=== PATIENT | male | born 1975 | race Caucasian/White ===

== ENCOUNTER 2021-12-14 14:17 | Emergency (ER) | payer OTHER ==
[2021-12-14] MEDS ORDERED: Sodium Chloride 0.9% 1000 ML 1,000 ML IV STA ×2 (14:59→16:19)
[2021-12-14] MEDS ORDERED: Sodium Chloride 0.9% 1000 ML 1,000 ML ONE ×2 (15:08→16:23)
--- NOTE | 2021-12-14 15:09 | ERPHSYRPT ---
- History of Present Illness Time Seen by Provider: 12/14/21 15:07 Historian: patient Exam Limitations: no limitations Patient Subjective Stated Complaint: vomiting Triage Nursing Assessment: Patient ambulated back to ED and transferred self to bed. Patient A+O X3. Patient's skin pink, warm and dry. Patient complains of Vomiting, diarrhea, headache and fatigure since yesterday. Patient complains of headache 5/10. Physician History: Patient is 46-year-old male without any significant past medical history for last 2 days started having a vomiting nausea abdominal pain with some weakness but denies any fever or chills. Patient is fully vaccinated against coronavirus but he is not aware that anybody around him is recently positive. Patient denies any chest pain headache dizziness. Timing/Duration: day(s) (two days) Activities at Onset: none Abdominal Pain Onset Location: generalized abdomen Severity of Pain-Max: mild Severity of Pain-Current: mild Modifying Factors: Improves With: nothing Associated Symptoms: diarrhea, headache, nausea, vomiting Previous symptoms: no prior history Allergies/Adverse Reactions: bee venom protein (honey bee) Allergy (Verified 12/14/21 14:50) esomeprazole [From Nexium] Allergy (Verified 12/14/21 14:50) poison francy extract Allergy (Verified 12/14/21 14:50) poison oak extract Allergy (Verified 12/14/21 14:50) poison sumac extract Allergy (Verified 12/14/21 14:50) sheep derived (ovine) Allergy (Verified 12/14/21 14:50) Hx Influenza Vaccination/Date Given: No Hx Pneumococcal Vaccination/Date Given: No Immunizations Up to Date: Yes Travel Risk - International Travel Have you traveled outside of the country in past 3 weeks: No - Coronavirus Screening Are you exhibiting any of the following symptoms?: Yes Symptoms: Vomiting/Diarrhea, Headaches/Body Aches/Fatigue Close contact with a COVID-19 positive Pt in past 14-21 Days: No - Vaccine Status Have you recieved a Covid-19 vaccination: Yes 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 - Vaccination Dates Date of 2cond Vaccination (if applicable): 03/05/2021 - Review of Systems Constitutional: Weakness, No Fever, No Chills Eyes: No Symptoms Ears, Nose, & Throat: No Symptoms Respiratory: No Cough, No Dyspnea Cardiac: No Chest Pain, No Edema, No Syncope Abdominal/Gastrointestinal: Nausea, Vomiting, Diarrhea, No Abdominal Pain Genitourinary Symptoms: No Dysuria Musculoskeletal: No Back Pain, No Neck Pain Skin: No Rash Neurological: No Dizziness, No Focal Weakness, No Sensory Changes Psychological: No Symptoms Endocrine: No Symptoms All Other Systems: Reviewed and Negative - Past Medical History Pertinent Past Medical History: Yes Neurological History: No Pertinent History ENT History: No Pertinent History Cardiac History: No Pertinent History Respiratory History: No Pertinent History Endocrine Medical History: No Pertinent History Musculoskeletal History: No Pertinent History GI Medical History: No Pertinent History History: No Pertinent History Psycho-Social History: Anxiety, Depression Male Reproductive Disorders: No Pertinent History Other Medical History: PTSD - Past Surgical History Past Surgical History: Yes Neuro Surgical History: No Pertinent History Cardiac: No Pertinent History Respiratory: No Pertinent History Gastrointestinal: Cholecystectomy Genitourinary: No Pertinent History Musculoskeletal: No Pertinent History Male Surgical History: No Pertinent History - Social History Smoking Status: Never smoker Exposure to second hand smoke: No Drug Use: none Patient Lives Alone: No - Nursing Vital Signs Nursing Vital Signs: Initial Vital Signs Temperature 98.2 F 12/14/21 14:37 Pulse Rate 115 H 12/14/21 14:37 Respiratory Rate 18 12/14/21 14:37 Blood Pressure 128/88 12/14/21 14:37 O2 Sat by Pulse Oximetry 95 12/14/21 14:37 Pain Scale Pain Intensity 2 - Physical Exam General Appearance: no apparent distress, alert Eye Exam: PERRL/EOMI, eyes nml inspection Ears, Nose, Throat Exam: normal ENT inspection, pharynx normal, moist mucous membranes Neck Exam: normal inspection, non-tender, supple, full range of motion Respiratory Exam: normal breath sounds, lungs clear, No respiratory distress Cardiovascular Exam: regular rate/rhythm, normal heart sounds Gastrointestinal/Abdomen Exam: soft, No tenderness, No mass Back Exam: normal inspection, normal range of motion, No CVA tenderness, No vertebral tenderness Extremity Exam: normal inspection, normal range of motion, pelvis stable Neurologic Exam: alert, oriented x 3, cooperative, normal mood/affect, nml cerebellar function, sensation nml, No motor deficits Skin Exam: normal color, warm, dry SpO2: 95 - Course Nursing assessment & vital signs reviewed: Yes - CT Exams Abdomen/Pelvis CT Interpretation: Tele-radiologist Report (no acute findings,) Ordered Tests: Active Orders 24 hr Category Date Time Status ABDOMEN AND PELVIS W/0 CONTRAS [CT] Stat Exams 12/14/21 16:19 Taken AMYLASE Stat Lab 12/14/21 15:00 Completed CBC W DIFF Stat Lab 12/14/21 15:00 Completed CMP Stat Lab 12/14/21 15:00 Completed COVID AG-BINAX NOW RAPID TEST Stat Lab 12/14/21 15:00 Completed LIPASE Stat Lab 12/14/21 15:00 Completed UA W/RFX UR CULTURE Stat Lab 12/14/21 16:46 Completed Medication Summary Discontinued Medications Generic Name Dose Route Start Last Admin Trade Name Freq PRN Reason Stop Dose Admin Sodium Chloride 1,000 mls @ 999 mls/hr 12/14/21 14:59 12/14/21 16:15 Sodium Chloride 0.9% 1000 Ml IV 12/14/21 15:59 Infused .Q1H1M STA Infusion Sodium Chloride Confirm 12/14/21 15:08 Sodium Chloride 0.9% 1000 Ml Administered 12/14/21 15:09 Dose 1,000 mls @ ud .ROUTE .STK-MED ONE Sodium Chloride 1,000 mls @ 999 mls/hr 12/14/21 16:19 12/14/21 17:32 Sodium Chloride 0.9% 1000 Ml IV 12/14/21 17:19 Infused .Q1H1M STA Infusion Sodium Chloride Confirm 12/14/21 16:23 Sodium Chloride 0.9% 1000 Ml Administered 12/14/21 16:24 Dose 1,000 mls @ ud .ROUTE .STK-MED ONE Ondansetron HCl 4 mg 12/14/21 16:19 12/14/21 16:26 Ondansetron Hcl 4 Mg/2 Ml Vial IV 12/14/21 16:20 4 mg STAT ONE Administration Ondansetron HCl Confirm 12/14/21 16:23 Ondansetron Hcl 4 Mg/2 Ml Vial Administered 12/14/21 16:24 Dose 4 mg .ROUTE .STK-MED ONE Pantoprazole Sodium 40 mg 12/14/21 16:19 12/14/21 16:25 Pantoprazole 40 Mg Vial IV 12/14/21 16:20 40 mg STAT ONE Administration Pantoprazole Sodium Confirm 12/14/21 16:23 Pantoprazole 40 Mg Vial Administered 12/14/21 16:24 Dose 40 mg IV .STK-MED ONE Lab/Rad Data: Laboratory Result Diagrams 12/14/21 15:00 12/14/21 15:00 Laboratory Results 12/14/21 12/14/21 12/14/21 Range/Units 16:46 15:00 15:00 WBC (4.0-10.5) K/mm3 RBC (4.1-5.6) M/mm3 Hgb (12.5-18.0) gm/dl Hct (42-50) % MCV (78-100) fl MCH (26-32) pg MCHC (32-36) g/dl RDW (11.5-14.0) % Plt Count (150-450) K/mm3 MPV (7.5-11.0) fl Gran % (36.0-66.0) % Eos # (Auto) (0-0.5) Absolute Lymphs (auto) (1.0-4.6) Absolute Monos (auto) (0.0-1.3) Lymphocytes % (24.0-44.0) % Monocytes % (0.0-12.0) % Eosinophils % (0.00-5.0) % Basophils % (0.0-0.4) % Absolute Granulocytes (1.4-6.9) Basophils # (0-0.4) Sodium (137-145) mmol/L Potassium (3.5-5.1) mmol/L Chloride (98-107) mmol/L Carbon Dioxide (22-30) mmol/L Anion Gap (5-15) MEQ/L BUN (9-20) mg/dL Creatinine (0.66-1.25) mg/dL Estimated GFR ML/MIN Glucose (74-106) mg/dL Hemoglobin A1c 7.20 H (4.5-6.0) % Calcium (8.4-10.2) mg/dL Total Bilirubin (0.2-1.3) mg/dL AST (17-59) U/L ALT (0-50) U/L Alkaline Phosphatase (38-126) U/L Serum Total Protein (6.3-8.2) g/dL Albumin (3.5-5.0) g/dL Amylase (30-110) U/L Lipase (23-300) U/L Urine Color YELLOW (YELLOW) Urine Appearance SLIGHTLY CLOUDY (CLEAR) Urine pH 5.0 (5-6) Ur Specific Carlyle 1.024 (1.005-1.025) Urine Protein NEGATIVE (Negative) Urine Ketones TRACE (NEGATIVE) Urine Blood NEGATIVE (0-5) Andriy/ul Urine Nitrite NEGATIVE (NEGATIVE) Urine Bilirubin NEGATIVE (NEGATIVE) Urine Urobilinogen NEGATIVE (0-1) mg/dL Ur Leukocyte Esterase NEGATIVE (NEGATIVE) Urine WBC (Auto) 0-2 (0-5) /HPF Urine RBC (Auto) NONE (0-2) /HPF U Epithel Cells (Auto) NONE (FEW) /HPF Urine Bacteria (Auto) NONE SEEN (NEGATIVE) /HPF Urine Mucus (Auto) SLIGHT (NEGATIVE) /HPF Urine Culture Reflexed NO (NO) Urine Glucose NEGATIVE (NEGATIVE) mg/dL SARS-CoV-2 Ag (Rapid) NEGATIVE (NEGATIVE) 12/14/21 12/14/21 Range/Units 15:00 15:00 WBC 11.5 H (4.0-10.5) K/mm3 RBC 5.71 H (4.1-5.6) M/mm3 Hgb 15.6 (12.5-18.0) gm/dl Hct 47.1 (42-50) % MCV 82.5 (78-100) fl MCH 27.3 (26-32) pg MCHC 33.1 (32-36) g/dl RDW 14.2 H (11.5-14.0) % Plt Count 279 (150-450) K/mm3 MPV 9.8 (7.5-11.0) fl Gran % 90.0 H (36.0-66.0) % Eos # (Auto) 0.08 (0-0.5) Absolute Lymphs (auto) 0.55 L (1.0-4.6) Absolute Monos (auto) 0.49 (0.0-1.3) Lymphocytes % 4.8 L (24.0-44.0) % Monocytes % 4.3 (0.0-12.0) % Eosinophils % 0.7 (0.00-5.0) % Basophils % 0.2 (0.0-0.4) % Absolute Granulocytes 10.32 H (1.4-6.9) Basophils # 0.02 (0-0.4) Sodium 138 (137-145) mmol/L Potassium 4.2 (3.5-5.1) mmol/L Chloride 102 (98-107) mmol/L Carbon Dioxide 21 L (22-30) mmol/L Anion Gap 20.0 H (5-15) MEQ/L BUN 17 (9-20) mg/dL Creatinine 0.97 (0.66-1.25) mg/dL Estimated GFR > 60.0 ML/MIN Glucose 190 H (74-106) mg/dL Hemoglobin A1c (4.5-6.0) % Calcium 9.4 (8.4-10.2) mg/dL Total Bilirubin 0.90 (0.2-1.3) mg/dL AST 99 H (17-59) U/L ALT 146 H (0-50) U/L Alkaline Phosphatase 86 (38-126) U/L Serum Total Protein 8.0 (6.3-8.2) g/dL Albumin 4.5 (3.5-5.0) g/dL Amylase 42 (30-110) U/L Lipase 55 (23-300) U/L Urine Color (YELLOW) Urine Appearance (CLEAR) Urine pH (5-6) Ur Specific Carlyle (1.005-1.025) Urine Protein (Negative) Urine Ketones (NEGATIVE) Urine Blood (0-5) Andriy/ul Urine Nitrite (NEGATIVE) Urine Bilirubin (NEGATIVE) Urine Urobilinogen (0-1) mg/dL Ur Leukocyte Esterase (NEGATIVE) Urine WBC (Auto) (0-5) /HPF Urine RBC (Auto) (0-2) /HPF U Epithel Cells (Auto) (FEW) /HPF Urine Bacteria (Auto) (NEGATIVE) /HPF Urine Mucus (Auto) (NEGATIVE) /HPF Urine Culture Reflexed (NO) Urine Glucose (NEGATIVE) mg/dL SARS-CoV-2 Ag (Rapid) (NEGATIVE) - Progress Progress: improved Counseled pt/family regarding: lab results, diagnosis, need for follow-up, rad results, smoking cessation - Departure Departure Disposition: Home Clinical Impression: Febrile illness, acute Type 2 diabetes mellitus Qualifiers: Diabetes mellitus detention insulin use: without intermodal customer service use Diabetes mellitus complication status: with hyperglycemia Qualified Code(s): E11.65 - Type 2 diabetes mellitus with hyperglycemia Condition: Stable Critical Care Time: No Referrals: SONY BREEN [Primary Care Provider] - Follow up/PCP as directed Instructions: Diabetes Type 2 (DC), Treatment for Type 2 Diabetes Additional Instructions: Discharge/Care Plan MARCO ANTONIO BALTAZAR was seen on 12/14/21 in the Emergency Room. The patient was counseled regarding Diagnosis,Lab results, Imaging studies, need for follow up and when to return to the Emergency Room. Prescriptions given: Discharge Note I have spoken with the patient and/or caregivers. I have explained the patient's condition, diagnosis and treatment plan based on the information available to me at this time. I have answered the patient's and/or caregiver's questions and addressed any concerns. The patient and/or caregivers have as good understanding of the patient's diagnosis, condition and treatment plan as can be expected at this point. The vital signs have been stable. The patient's condition is stable and appropriate for discharge from the emergency department. The patient will pursue further outpatient evaluation with the primary care physician or other designated or consulting physician as outlined in the discharge instructions. The patient and/or caregivers are agreeable to this plan of care and follow-up instructions have been explained in detail. The patient and/or caregivers have received these instruction. The patient/and or caregivers are aware that any significant change in condition or worsening of symptoms should prompt an immediate return to this or the closest emergency department or call 911. MARCO ANTONIO BALTAZAR was seen on 12/14/21 n the Emergency Room. At that time you were treated for an emergent condition, during your visit Laboratory, Radiology and/or other procedures may have been ordered. It is very important that you follow-up with your Primary Care Physician SONY BREEN within the next 24-48 hours to review your Emergency Room visit and the final results of testing that was ordered. Some test results such as Urine Cultures, Blood Cultures, and other cultures if ordered will not be finalized for 24-48 hours. If you do not have a Primary Care Provider please call the medical records department at [phone] to obtain a copy of your results or you may sign into our patient portal to obtain these results by visiting us @ [email or web address] and completing the following steps: 1. Click on the Patient Portal link 2. Click the Patient Self Enrollment Link to complete the enrollment form and entering your 3. Once the enrollment form is completed you will receive an email with a temporary ID and password at the email address you provided. 4. Next choose a user name and password. Your user name must be at least 4 characters long and your password must be at least 4 characters long. 5. Choose a security question from the list and provide your answer to the question. If you already have signed into the Health Portal you may access your Health Care Information 11/05 by the following steps: 1. Login to our website @ [email or web address] 2. Enter your original user name and password. FAQS The [facility] Health Portal is an online tool that contains your Lab Results, Radiology Reports, Visit History, Discharge Instructions and Health Summary Lab and Radiology Results will not be available for 72 hours on the portal. The Portal is a secure site, passwords are encryted and URLs are re-written so they cannot be copied and pasted. You and authorized family members are the only ones who can access your Portal. Also there is a timeout feature that protects your information if you leave the Portal page open. If you have technical difficulty please use the Contact Us link on the page this will allow you to submit any questions you have regarding the Portal or you may contact the Medical Record Department at [phone]. Prescriptions: Metformin HCl 500 mg [Glucophage 500 MG] 500 mg PO BIDWM 30 Days #60 tablet
[2021-12-14 15:37] LABS: Absolute Neutrophil Ct (ANC) 10.32 (1.4-6.9); Basophil (Absolute #) 0.02 (0-0.4); Eosinophil % 0.7 % (0.00-5.0); Eosinophil (Absolute #) 0.08 (0-0.5); Hematocrit 47.1 % (42-50); Hemoglobin 15.6 gm/dl (12.5-18.0); Lymphocyte (Absolute #) 0.55 (1.0-4.6); Lymphocytes % 4.8 % (24.0-44.0); Mean Cell Volume 82.5 fl (78-100); Mean Corpuscular Hemoglobin 27.3 pg (26-32); Mean Corpuscular Hgb Concent. 33.1 g/dl (32-36); Mean Platelet Volume 9.8 fl (7.5-11.0); Monocyte (Absolute #) 0.49 (0.0-1.3); Monocytes % 4.3 % (0.0-12.0); Platelet Count 279 K/mm3 (150-450); Red Blood Count 5.71 M/mm3 (4.1-5.6); Red Cell Distribution Width 14.2 % (11.5-14.0); White Blood Count 11.5 K/mm3 (4.0-10.5)
[2021-12-14 15:50] LABS: COVID AG -BINAX NOW RAPID TEST NEGATIVE (NEGATIVE)
[2021-12-14 15:56] LABS: ALBUMIN 4.5 g/dL (3.5-5.0); ALKALINE PHOSPHATASE 86 U/L (38-126); AMYLASE 42 U/L (30-110); BLOOD UREA NITROGEN 17 mg/dL (9-20); CHLORIDE 102 mmol/L (98-107); Calcium 9.4 mg/dL (8.4-10.2); Carbon Dioxide 21 mmol/L (22-30); Creatinine 1 0.97 mg/dL (0.66-1.25); EST GLOMERULAR FILTRATION RATE > 60.0 ML/MIN; Glucose 190 mg/dL (74-106); LIPASE 55 U/L (23-300); Potassium 4.2 mmol/L (3.5-5.1); SGOT/AST 99 U/L (17-59); SGPT/ALT 146 U/L (0-50); SODIUM 138 mmol/L (137-145)
[2021-12-14 16:15] VITALS: BP 142/87
[2021-12-14] MEDS ORDERED: Zofran 4 MG/2 ML VIAL IV ONE (16:19)
[2021-12-14] MEDS ORDERED: PROTONIX 40 MG IV IV ONE ×2 (16:19→16:23)
[2021-12-14] MEDS ORDERED: Zofran 4 MG/2 ML VIAL ONE (16:23)
[2021-12-14 17:02] LABS: Appearance SLIGHTLY CLOUDY (CLEAR); Bilirubin NEGATIVE (NEGATIVE); Blood NEGATIVE Ery/ul (0-5); Glucose NEGATIVE (NEGATIVE); Ketones TRACE (NEGATIVE); Leukocyte Esterase NEGATIVE (NEGATIVE); Mucus SLIGHT /HPF (NEGATIVE); Nitrite NEGATIVE (NEGATIVE); Protein,Urine Dip NEGATIVE (Negative); Specific Gravity 1.024 (1.005-1.025); Urobilinogen NEGATIVE mg/dL (0-1); WBC 0-2 /HPF (0-5)
[2021-12-14 17:05] LABS: Bacteria NONE SEEN /HPF (NEGATIVE)
[2021-12-14 17:58] VITALS: PULSE 111; O2SAT 94
--- NOTE | 2021-12-14 18:54 | XRAY ---
Indication: Nausea, vomiting, diarrhea. Multiple contiguous axial images obtained through the abdomen and pelvis without contrast. Comparison: None Lung bases are clear of infiltrate and effusion. Heart not enlarged. Small hiatal hernia. Noncontrasted stomach and bowel loops appear nonobstructed. Normal appendix. Minimal scattered colonic diverticulosis without diverticulitis. Previous cholecystectomy. Right kidney demonstrates 1.2 cm exophytic cyst and nonobstructing punctate calculus. No free fluid/air. 21.5 cm fatty hepatomegaly and 14.5 cm splenomegaly. Remaining liver, pancreas, spleen, adrenal glands, kidneys, ureters, bladder, and aorta are unremarkable for noncontrast exam. Osseous structures intact. No ventral or inguinal hernias. Impression: 1. Fatty hepatomegaly, splenomegaly, small hiatal hernia, small right renal cyst, and nonobstructing right renal micro-calculus. 2. Remaining CT abdomen/pelvis without contrast exam is negative. Comment: Preliminary interpretation made by [facility]. No critical discrepancy.
== END 2021-12-14 18:12 | disposition home or self-care (01) ==
LOC: ED 14:17
DX: R69 Illness, unspecified (principal); R50.9 Fever, unspecified; R11.2 Nausea with vomiting, unspecified; R10.84 Generalized abdominal pain; R53.1 Weakness; R19.7 Diarrhea, unspecified; R51.9 Headache, unspecified; E11.65 Type 2 diabetes mellitus with hyperglycemia; Z79.84 Long term (current) use of oral hypoglycemic drugs
CPT/HCPCS: 36415; 74176; 80053; 81001; 82150; 83036; 83690; 85025; 96360; 96374; 99000; 99284; J2405